=== PATIENT | female | born 1970 | race Caucasian/White ===

== ENCOUNTER → 2017-04-04 | Outpatient (REF) | payer OTHER, MEDICARE ==
[~2017-04-04] MED LIST: ATIV1TAB10 PO; KINERET INJ; MULTCAP PO; NEXI40CA PO; ONDA4TAB5; PERC5TAB12 PO; PROT1TAB2 PO; PROZ20CA11 PO; amoxicillin; iron OR
== END ==
LOC: M LAB REF 17:14
PROVIDERS: ATTEND Family Medicine
DX: I31.0 Chronic adhesive pericarditis (principal)

== ENCOUNTER 2017-05-08 15:17 | Emergency (ER) | payer OTHER, MEDICARE ==
[~2017-05-08] VITALS: Ht 162.6 cm; Wt 85.0 kg
[~2017-05-08 15:17] MED LIST changes: -ONDA4TAB5
[2017-05-08] MEDS ORDERED: ONDA4TAB5 (15:46)
[2017-05-08 18:15] LABS: BASO % 0.7 % (0.0-1.0); EOS # 0.1 K/mm3 (0.0-0.50); EOS % 1.7 % (0.0-3.0); LARGE UNSTAINED CELL # 0.1 K/mm3 (0.0-0.4); LARGE UNSTAINED CELL % 1.8 % (0.0-4.0); LYMPH # 1.9 K/mm3 (1.5-4.5); LYMPH % 26.4 % (24.0-44.0); MEAN CORPUSCULAR HEMOGLOBIN 33.7 pg (27.0-33.0); MEAN CORPUSCULAR HGB CONC 35.9 g/dl (32.0-36.5); MEAN CORPUSCULAR VOLUME 93.8 fl (80.0-96.0); MONO # 0.4 K/mm3 (0.0-0.8); MONO % 4.9 % (0.0-5.0); NEUTROPHILS # 4.6 K/mm3 (1.8-7.7); NEUTROPHILS % 64.5 % (36.0-66.0); PLATELET COUNT, AUTOMATED 306 k/mm3 (150-450); RED CELL DISTRIBUTION WIDTH 12.2 % (11.5-14.5); WHITE BLOOD COUNT 7.2 K/mm3 (4.0-10.0)
[2017-05-08 18:25] LABS: CONTROL LINE HCG INT CTR LINE PRESENT
--- NOTE | 2017-05-08 18:32 | REP ---
CHEST, PA AND LATERAL: 05/08/2017. Comparison: PA chest 09/15/2015, 11/11/2014. Clinical history: Chest pain. Findings: The lung eller are well inflated without pleural effusion, lateral pleural thickening, apical scarring or pneumothorax. There is no acute infiltrate, pulmonary nodule, atelectasis or mass. The heart, mediastinal and hilar contours normal. Airway intact. Bony thorax shows no focal lesions. No free air under the diaphragm. Impression. 1. No acute cardiopulmonary disease, stable chest from multiple prior exams. Signed by Jesse Joe MD 05/08/2017 08:07 P
[2017-05-08 18:33] LABS: ALBUMIN 4.1 GM/DL (3.2-5.2); ALBUMIN/GLOBULIN RATIO 1.41 (1.00-1.93); ALT/SGPT 35 U/L (12-78); ANION GAP 7 MEQ/L (8-16); AST/SGOT 15 U/L (15-37); BILIRUBIN,DIRECT 0.1 MG/DL (0.0-0.2); BILIRUBIN,TOTAL 0.6 MG/DL (0.2-1.0); BLOOD UREA NITROGEN 11 MG/DL (7-18); CALCIUM LEVEL 9.4 MG/DL (8.5-10.1); CARBON DIOXIDE LEVEL 27 MEQ/L (21-32); CHLORIDE LEVEL 108 MEQ/L (98-107); CREATININE FOR GFR 0.71 MG/DL (0.55-1.02); GLOMERULAR FILTRATION RATE > 60.0 (>58); GLUCOSE, FASTING 86 MG/DL (70-105); POTASSIUM SERUM 4.1 MEQ/L (3.5-5.1); SODIUM LEVEL 142 MEQ/L (136-145)
[2017-05-08 18:39] LABS: ALKALINE PHOSPHATASE 42 U/L (45-117); FREE T4 0.88 NG/DL (0.76-1.46)
[2017-05-08 18:54] VITALS: BP 123/55
--- NOTE | 2017-05-09 08:26 | ECGEPIP ---
Stationary ECG Study [facility] - ED Test Date: 2017-05-08 Pat Name: AMAIRANI SALGADO Department: Room: - Gender: F [employer]: : 1970 Requested By: SAMMI Lobo Order Number: [id number] Reading MD: Yaneth Beebe Measurements Intervals [place] Rate: 74 P: 39 ME: 156 QRS: 30 QRSD: 79 T: 42 QT: 359 QTc: 399 Interpretive Statements SINUS RHYTHM NSTTW ABNORMALITY SIMILAR 09/15/15 Electronically Signed On 05-09-2017 8:26:12 EDT by Yaneth Beebe
== END 2017-05-08 19:30 | disposition home or self-care (01) ==
LOC: M ED 15:17
DX: I31.9 Disease of pericardium, unspecified (principal); K21.9 Gastro-esophageal reflux disease without esophagitis; F41.9 Anxiety disorder, unspecified; Z79.899 Other long term (current) drug therapy; Z88.5 Allergy status to narcotic agent

== ENCOUNTER → 2019-11-11 | Outpatient (CLI) | payer BC ==
[~2019-11-11] MED LIST changes: +ONDA-83
== END ==
LOC: M LABSMTC 10:47
PROVIDERS: ATTEND Family Medicine
DX: Z11.59 Encounter for screening for other viral diseases (principal); Z20.828 Contact with and (suspected) exposure to other viral communicable diseases
CPT/HCPCS: 87502; U0002

== ENCOUNTER → 2019-12-09 | Outpatient (REF) | payer BC | LOC: M LAB REF 12:01 | PROVIDERS: ATTEND Family Medicine | DX: B34.2 Coronavirus infection, unspecified (principal); R50.9 Fever, unspecified; R05 Cough ==

== ENCOUNTER → 2021-08-07 | Outpatient (REF) | payer BC | LOC: M LAB REF 16:24 | PROVIDERS: ATTEND Family Medicine | DX: I31.0 Chronic adhesive pericarditis (principal) ==

== ENCOUNTER → 2022-07-24 | Outpatient (REF) | payer BC | LOC: M LAB REF 16:12 | PROVIDERS: ATTEND Family Medicine | DX: I31.0 Chronic adhesive pericarditis (principal) ==

== ENCOUNTER → 2023-01-25 | Outpatient (REF) | payer BC | LOC: M LAB REF 16:20 | PROVIDERS: ATTEND Family Medicine | DX: I31.0 Chronic adhesive pericarditis (principal) ==

== ENCOUNTER → 2024-03-13 | Outpatient (REF) | payer BC ==
[2024-03-18 03:32] LABS: COPPER PLASMA 112 mcg/dL (70-175); ZINC PLASMA 91 mcg/dL (60-130)
== END ==
LOC: M LAB REF 16:15
PROVIDERS: ATTEND Family Medicine
DX: M54.2 Cervicalgia (principal); Z77.011 Contact with and (suspected) exposure to lead

== ENCOUNTER → 2024-04-03 | Outpatient (REF) | payer BC | LOC: M LAB REF 16:09 | PROVIDERS: ATTEND Family Medicine | DX: Z77.018 Contact with and (suspected) exposure to other hazardous metals (principal) ==